=== PATIENT | male | born 1975 | race Caucasian/White ===

== ENCOUNTER 2020-07-09 11:05 | Emergency (ER) | payer MEDICAID ==
[~2020-07-09] VITALS: Ht 167.6 cm; Wt 99.8 kg
[2020-07-09 11:15] VITALS: BP_SYST 160
[2020-07-09 11:49] VITALS: BP_SYST 160
== END 2020-07-09 11:49 | disposition home or self-care (01) ==
LOC: SED 11:05
DX: A49.02 Methicillin resistant Staphylococcus aureus infection, unspecified site (principal)
CPT/HCPCS: 99283

== ENCOUNTER 2020-10-08 00:18 | Emergency (ER) | payer MEDICAID ==
[~2020-10-08] VITALS: Ht 167.6 cm; Wt 104.3 kg
[2020-10-08 00:30] VITALS: BP_SYST 159
--- NOTE | 2020-10-08 00:34 | NUR ---
TRIAGED TO BED 7
--- NOTE | 2020-10-08 00:35 | NUR ---
PT. BROUGHT BACK TO ED BED 7 AAOx3 CC 1CM BED BUG IN HEALING STAGES CRUSTED OVER TO THE MIDLINE ABDOMEN ABOVE THE UMBILICUS 5/10 PAIN x1 WEEK HISTORY OF SCHIZO AND BIPOLAR NO KNOWN ALLERGIES PT. PLACED IN ER BED IN LOWEST POSITION WITH BOTH SIDE RIALS UP
--- NOTE | 2020-10-08 00:39 | NUR ---
ER at bedside examining patient.
[2020-10-08] MEDS ORDERED: IBUPROFEN 600 MG TABLET PO ONE (00:45)
[2020-10-08] MEDS ORDERED: cephALEXin 500 MG CAPSULE PO ONE (00:45)
[2020-10-08] MEDS ORDERED: IBUPROFEN 600 MG TABLET ONE (01:09)
[2020-10-08 01:17] VITALS: BP_SYST 159
--- NOTE | 2020-10-08 01:20 | NUR ---
Patient given written and verbal discharge instructions and verbalizes understanding. DR. AZEEM BULNT MD discussed with patient the results and treatment provided. Patient in stable condition. ID arm band removed. Rx of KEFLEX given. Patient educated on pain management and to follow up with PMD. Pain Scale 2/10. Opportunity for questions provided and answered. Medication side effect fact sheet provided.
== END 2020-10-08 01:20 | disposition home or self-care (01) ==
LOC: SED 00:18
DX: L02.211 Cutaneous abscess of abdominal wall (principal); I10 Essential (primary) hypertension
CPT/HCPCS: 99283

== ENCOUNTER 2020-11-15 14:08 | Emergency (ER) | payer MEDICAID ==
[~2020-11-15] VITALS: Ht 170.2 cm; Wt 79.4 kg
[2020-11-15 14:28] VITALS: BP_SYST 138
[2020-11-15 15:10] VITALS: BP_SYST 138
== END 2020-11-15 15:10 | disposition home or self-care (01) ==
LOC: SED 14:08
DX: A49.02 Methicillin resistant Staphylococcus aureus infection, unspecified site (principal)
CPT/HCPCS: 99283

== ENCOUNTER 2020-12-04 17:54 | Emergency (ER) | payer MEDICAID, SELFPAY ==
[~2020-12-04] VITALS: Ht 167.6 cm; Wt 117.9 kg
[2020-12-04 17:54] VITALS: BP_SYST 155
[2020-12-04] MEDS ORDERED: ACETAMINOPHEN 500 MG TABLET PO ONE (18:30)
== END 2020-12-04 18:50 | disposition home or self-care (01) ==
LOC: SED 17:54
DX: B34.9 Viral infection, unspecified (principal); Z20.822 Contact with and (suspected) exposure to COVID-19
CPT/HCPCS: 99283; C9803; U0003

== ENCOUNTER 2020-12-07 00:55 | Emergency (ER) | payer MEDICAID, SELFPAY ==
[~2020-12-07] VITALS: Ht 167.6 cm; Wt 99.8 kg
--- NOTE | 2020-12-07 01:10 | NUR ---
Patient to ER bed 7 to gown for evaluation. Side rails up.
[2020-12-07 01:15] VITALS: BP_SYST 159
--- NOTE | 2020-12-07 01:15 | NUR ---
PT AAO AND AMBULATORY REPORTING SUDDEN ONSET OF CHEST PAIN, DIAPHORESIS, AND LIGHT HEADEDNESS. PT CURRENTLY REPORTS 8/10 PAIN SCALE.
[2020-12-07] MEDS ORDERED: NACL 0.9% 1,000 ML IV ONE (01:30)
--- NOTE | 2020-12-07 01:45 | NUR ---
PORTABLE CXR DONE AT BEDSIDE.
[2020-12-07 02:24] LABS: BASOPHILS % (AUTO) 0.7 % (0.0-2.0); EOSINOPHILS % (AUTO) 0.1 % (0.0-4.0); HEMATOCRIT 44.9 % (36-54); HEMOGLOBIN 15.2 g/dL (14.0-18.0); LYMPHOCYTES # (AUTO) 1.4 K/uL (1.0-5.5); LYMPHOCYTES % (AUTO) 22.7 % (20.5-51.5); MEAN CORPUSCULAR HEMOGLOBIN 30 pg (27-31); MEAN CORPUSCULAR HGB CONC 34 % (32-36); MEAN CORPUSCULAR VOLUME 88 fL (79.0-98.0); MONOCYTES # (AUTO) 0.7 K/uL (0.0-1.0); MONOCYTES % (AUTO) 11.5 % (1.7-9.3); NEUTROPHILS # (AUTO) 3.9 K/uL (1.8-7.7); PLATELET COUNT (AUTO) 186 K/uL (130-430); RED BLOOD CELL COUNT(AUTO) 5.08 MIL/uL (4.2-6.2); RED CELL DISTRIBUTION WIDTH 13.5 % (9.0-15.0)
[2020-12-07 02:31] LABS: ANION GAP 10 (5-15); CALCIUM 8.7 mg/dL (8.4-11.0); CHLORIDE 95 mmol/L (98-107); CREATININE 1.18 mg/dL (0.55-1.30); GFR AFRICAN AMERICAN 86 mL/min (>90); GLUCOSE 111 mg/dL (70-99); POTASSIUM 4.2 mmol/L (3.5-5.1); SODIUM SERUM 133 mmol/L (136-145); UREA NITROGEN, BLOOD 11 mg/dL (8-21)
--- NOTE | 2020-12-07 02:32 | NUR ---
Patient resting quietly. No acute distress noted.
[2020-12-07 02:42] LABS: ALANINE AMINOTRANSFERASE 48 U/L (12-78); ALBUMIN 3.4 g/dL (3.4-4.8); ASPARTATE AMINOTRANSFERASE 39 U/L (10-37); TOTAL BILIRUBIN 0.3 mg/dL (0.0-1.0)
[2020-12-07] MEDS ORDERED: KETOROLAC TROMETHAMINE 30 MG VIAL IVP ONE (03:15)
[2020-12-07] MEDS ORDERED: KETOROLAC TROMETHAMINE 30 MG VIAL ONE (03:34)
--- NOTE | 2020-12-07 03:35 | NUR ---
pt medicated per md order. pt tolerated well.
--- NOTE | 2020-12-07 03:51 | NUR ---
attempted to call pts Mom Shannon, phone went to voicemail. unable to leave message.
[2020-12-07 03:59] VITALS: BP_SYST 133
--- NOTE | 2020-12-07 03:59 | NUR ---
Patient given written and verbal discharge instructions and verbalizes understanding. ER MD discussed with patient the results and treatment provided. Patient in stable condition. ID arm band removed. IV catheter removed intact and dressing applied, no active bleeding. Rx of ibuprofen given. Patient educated on pain management and to follow up with PMD. Pain Scale 2/10. Opportunity for questions provided and answered. Medication side effect fact sheet provided.
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
== END 2020-12-07 03:59 | disposition home or self-care (01) ==
LOC: SED 00:55
DX: R07.89 Other chest pain (principal)
CPT/HCPCS: 36415; 71045; 80053; 84484; 85025; 85379; 93005; 96361; 96374; 99291; J1885; J7030

== ENCOUNTER 2020-12-07 14:42 | Emergency (ER) | payer MEDICAID, SELFPAY ==
[~2020-12-07] VITALS: Ht 167.6 cm; Wt 99.8 kg
[2020-12-07 15:00] VITALS: BP_SYST 133
--- NOTE | 2020-12-07 15:00 | NUR ---
PT TO TENT FOR EVALUATION
--- NOTE | 2020-12-07 15:20 | NUR ---
Patient left without being seen.
== END 2020-12-07 15:20 | disposition left against medical advice (07) ==
LOC: SED 14:42
DX: R06.02 Shortness of breath (principal); Z53.21 Procedure and treatment not carried out due to patient leaving prior to being seen by health care provider

== ENCOUNTER 2021-04-26 19:31 | Emergency (ER) | payer MEDICAID, SELFPAY ==
[~2021-04-26] VITALS: Ht 167.6 cm; Wt 99.8 kg
[2021-04-26 19:48] VITALS: BP_SYST 148
[2021-04-26] MEDS ORDERED: CEPH500C2 PO (20:32)
[2021-04-26] MEDS ORDERED: IBUP-1969 PO (20:32)
[2021-04-26] MEDS ORDERED: IBUPROFEN 600 MG TABLET ONE (20:40)
[2021-04-26] MEDS ORDERED: IBUPROFEN 600 MG TABLET PO ONE (20:45)
[2021-04-26 20:54] VITALS: BP_SYST 139
== END 2021-04-26 20:53 | disposition home or self-care (01) ==
LOC: SED 19:31
DX: S91.311A Laceration without foreign body, right foot, initial encounter (principal); F41.9 Anxiety disorder, unspecified; Z79.899 Other long term (current) drug therapy; L08.9 Local infection of the skin and subcutaneous tissue, unspecified; W25.XXXA Contact with sharp glass, initial encounter; Y93.89 Activity, other specified; Y92.89 Other specified places as the place of occurrence of the external cause; Y99.8 Other external cause status
CPT/HCPCS: 99283

== ENCOUNTER 2021-06-14 05:51 | Emergency (ER) | payer MEDICAID ==
[~2021-06-14] VITALS: Ht 167.6 cm; Wt 104.3 kg
[~2021-06-14 05:51] MED LIST: CEPH500C2 PO; IBUP-1969 PO
[2021-06-14 06:26] VITALS: BP_SYST 151
[2021-06-14] MEDS ORDERED: SULF1TAB47 PO (06:41)
[2021-06-14] MEDS ORDERED: BACI15OI13 TP (06:41)
[2021-06-14 06:58] VITALS: BP_SYST 151
== END 2021-06-14 06:58 | disposition home or self-care (01) ==
LOC: SED 05:51
DX: S00.86XA Insect bite (nonvenomous) of other part of head, initial encounter (principal); S60.562A Insect bite (nonvenomous) of left hand, initial encounter; L08.9 Local infection of the skin and subcutaneous tissue, unspecified; W57.XXXA Bitten or stung by nonvenomous insect and other nonvenomous arthropods, initial encounter; Y93.89 Activity, other specified; Y92.89 Other specified places as the place of occurrence of the external cause; Y99.8 Other external cause status
CPT/HCPCS: 99283

== ENCOUNTER 2021-06-26 08:28 | Emergency (ER) | payer MEDICAID ==
[~2021-06-26] VITALS: Ht 167.6 cm; Wt 104.3 kg
[~2021-06-26 08:28] MED LIST changes: +BACI15OI13 TP; +SULF1TAB47 PO
[2021-06-26 09:08] VITALS: BP_SYST 169
[2021-06-26] MEDS ORDERED: SULF1TAB48 PO (11:34)
[2021-06-26 12:01] VITALS: BP_SYST 169
== END 2021-06-26 12:01 | disposition home or self-care (01) ==
LOC: SED 08:28
DX: L02.811 Cutaneous abscess of head [any part, except face] (principal); F15.90 Other stimulant use, unspecified, uncomplicated; F41.9 Anxiety disorder, unspecified; Z79.899 Other long term (current) drug therapy
CPT/HCPCS: 87070-TC; 87075-TC; 87186-TC; 99283

== ENCOUNTER 2021-07-28 01:30 | Emergency (ER) | payer MEDICAID ==
[~2021-07-28] VITALS: Ht 167.6 cm; Wt 99.8 kg
[~2021-07-28 01:30] MED LIST changes: +SULF1TAB48 PO
[2021-07-28 01:35] VITALS: BP_SYST 174
--- NOTE | 2021-07-28 03:10 | NUR ---
Patient to ER bed 4 to gown for evaluation. Side rails up.
--- NOTE | 2021-07-28 03:15 | NUR ---
Dr. Rodríguez bedside for pt eval
--- NOTE | 2021-07-28 03:20 | NUR ---
PT BIB FAMILY TO ED S/P STEP INTO NAIL X7HRS.C/O RT FOOT PAIN. VSS NO S/S OF ACUTE DISTRESS RESTING ON GURNEY RAILS UP
[2021-07-28] MEDS ORDERED: CIPR500T5 PO (03:54)
[2021-07-28] MEDS ORDERED: DIPH-TET-PERTUS Vaccine 0.5 ML VIAL (ADACEL) I.M. ONE (04:00)
[2021-07-28] MEDS ORDERED: CIPROFLOXACIN HCL 500 MG TABLET PO ONE (04:00)
[2021-07-28 04:10] VITALS: BP_SYST 174
--- NOTE | 2021-07-28 04:10 | NUR ---
Patient given written and verbal discharge instructions and verbalizes understanding. ER MD discussed with patient the results and treatment provided. Patient in stable condition. ID arm band removed. Rx of Cipro given. Patient educated on pain management and to follow up with PMD. Pain Scale 0/10 Opportunity for questions provided and answered. Medication side effect fact sheet provided.
== END 2021-07-28 04:10 | disposition home or self-care (01) ==
LOC: SED 01:30
DX: S91.331A Puncture wound without foreign body, right foot, initial encounter (principal); I10 Essential (primary) hypertension; W45.8XXA Other foreign body or object entering through skin, initial encounter; Y93.89 Activity, other specified; Y92.89 Other specified places as the place of occurrence of the external cause; Y99.8 Other external cause status
CPT/HCPCS: 90715; 99283

== ENCOUNTER 2021-10-05 06:12 | Emergency (ER) | payer MEDICAID ==
[~2021-10-05] VITALS: Ht 167.6 cm; Wt 99.8 kg
[~2021-10-05 06:12] MED LIST changes: +CEPH-548 PO; -CEPH500C2 PO; +CIPR500T5 PO
[2021-10-05 06:25] VITALS: BP_SYST 163
--- NOTE | 2021-10-05 06:25 | NUR ---
Patient to ER bed 5 to gown for evaluation. Side rails up. Report given to RUTHIE REED.
--- NOTE | 2021-10-05 06:32 | NUR ---
ER at bedside examining patient.
--- NOTE | 2021-10-05 06:33 | NUR ---
PT ARRIVED TO ER WITH COMPLAINTS OF A WOUND TO RIGHT SIDE OF HIS MOUTH. STATES IT HAS BEEN THERE FOR ABOUT 3-4 DAYS. PT HAS 4/10 PAIN. A&OX4.
--- NOTE | 2021-10-05 07:00 | NUR ---
Report received from Wilmar HENDRICKS. Asumed care of patient. Patient resting in bed; in no acute distress. Awaiting Dr Escalera for evaluation. Will continue to monitor.
--- NOTE | 2021-10-05 07:05 | NUR ---
Dr Escalera to bedside for evaluation
[2021-10-05 07:38] LABS: BASOPHILS # (AUTO) 0.1 K/uL (0.0-0.2); BASOPHILS % (AUTO) 1.2 % (0.0-2.0); EOSINOPHILS # (AUTO) 0.3 K/uL (0.0-0.4); EOSINOPHILS % (AUTO) 2.7 % (0.0-4.0); HEMATOCRIT 44.4 % (36-54); LYMPHOCYTES # (AUTO) 1.8 K/uL (1.0-5.5); LYMPHOCYTES % (AUTO) 18.9 % (20.5-51.5); MEAN CORPUSCULAR HEMOGLOBIN 30 pg (27-31); MEAN CORPUSCULAR HGB CONC 34 % (32-36); MEAN CORPUSCULAR VOLUME 88 fL (79.0-98.0); MONOCYTES # (AUTO) 0.8 K/uL (0.0-1.0); MONOCYTES % (AUTO) 8.6 % (1.7-9.3); NEUTROPHILS # (AUTO) 6.5 K/uL (1.8-7.7); NEUTROPHILS % (AUTO) 68.6 % (40.0-70.0); PLATELET COUNT (AUTO) 290 K/uL (130-430); RED BLOOD CELL COUNT(AUTO) 5.06 MIL/uL (4.2-6.2); RED CELL DISTRIBUTION WIDTH 13.2 % (9.0-15.0); WHITE BLOOD COUNT (AUTO) 9.5 K/uL (4.8-10.8)
[2021-10-05 07:54] LABS: CALCIUM 8.8 mg/dL (8.4-11.0); CREATININE 1.05 mg/dL (0.55-1.30)
[2021-10-05 07:58] LABS: ALBUMIN 3.5 g/dL (3.4-4.8); C-REACTIVE PROTEIN QUANT 0.4 mg/dL (0-0.5); TOTAL BILIRUBIN 0.2 mg/dL (0.0-1.0)
[2021-10-05 08:02] LABS: PROTHROMBIN TIME 10.3 SECS (9.5-12.5)
--- NOTE | 2021-10-05 08:20 | NUR ---
Patient reported having headache. Dr Escalera informed per RN. Patient further noted pacing in room. Will await any further orders and follow up evaluation.
[2021-10-05] MEDS ORDERED: CLIN300C12 PO (08:25)
[2021-10-05] MEDS ORDERED: NEOM28.36 TP (08:25)
--- NOTE | 2021-10-05 09:00 | NUR ---
PT ELOPED OUT OF ER WITHOUT DISCHARGE PAPERWORK.
[2021-10-05 09:15] VITALS: BP_SYST 163
== END 2021-10-05 09:00 | disposition left against medical advice (07) ==
LOC: SED 06:12
DX: L03.211 Cellulitis of face (principal); J44.9 Chronic obstructive pulmonary disease, unspecified; F41.9 Anxiety disorder, unspecified; Z79.899 Other long term (current) drug therapy
CPT/HCPCS: 36415; 80053; 83605; 85025; 85610-TC; 85730-TC; 86140; 99283

== ENCOUNTER 2021-11-01 09:34 | Emergency (ER) | payer MEDICAID ==
[~2021-11-01] VITALS: Ht 167.6 cm; Wt 127.0 kg
[~2021-11-01 09:34] MED LIST changes: +CLIN-142 PO; +NEOM28.36 TP
[2021-11-01 09:35] VITALS: BP_SYST 151
--- NOTE | 2021-11-01 09:35 | NUR ---
BROUGHT BACK TO BED #3 AND TRIAGED. REPORT GIVEN TO MANJU
--- NOTE | 2021-11-01 09:38 | NUR ---
ER at bedside examining patient.
[2021-11-01] MEDS ORDERED: CLOT30CR25 TP (10:38)
[2021-11-01] MEDS ORDERED: CLIN-142 PO (10:38)
--- NOTE | 2021-11-01 10:57 | NUR ---
Patient given written and verbal discharge instructions and verbalizes understanding. MERLENE ribera MD discussed with patient the results and treatment provided. Patient in stable condition. ID arm band removed. Rx of clindomycin,clotrimazole given. Patient educated on pain management and to follow up with PMD. Pain Scale 0. Opportunity for questions provided and answered. Medication side effect fact sheet provided.
== END 2021-11-01 10:57 | disposition home or self-care (01) ==
LOC: SED 09:34
DX: L03.211 Cellulitis of face (principal); F41.9 Anxiety disorder, unspecified; Z79.899 Other long term (current) drug therapy
CPT/HCPCS: 99283

== ENCOUNTER 2022-01-13 01:21 | Emergency (ER) | payer MEDICAID ==
[~2022-01-13] VITALS: Ht 167.6 cm; Wt 104.3 kg
[2022-01-13 01:21] VITALS: BP_SYST 169
[~2022-01-13 01:21] MED LIST changes: +CLOT30CR25 TP
--- NOTE | 2022-01-13 01:21 | NUR ---
Patient to ER bed 05 to gown for evaluation. Side rails up. Report given to RUTHIE Rasheed
--- NOTE | 2022-01-13 01:48 | NUR ---
pt c/o right thumb has splinter and bump on right posterior of head, healed over scabes on both sites.
[2022-01-13] MEDS ORDERED: BACITRACIN ZINC 15 GM TOPICAL OINTMENT TP ONE (02:00)
[2022-01-13] MEDS ORDERED: SULF1TAB48 PO (03:22)
[2022-01-13] MEDS ORDERED: BACI15OI13 TP (03:22)
[2022-01-13] MEDS ORDERED: ACETAMINOPHEN 325 MG TABLET ONE (04:21)
[2022-01-13] MEDS ORDERED: BACITRACIN 1 GM OINT TP ONE (04:21)
[2022-01-13 04:27] VITALS: BP_SYST 161
[2022-01-13] MEDS ORDERED: ACETAMINOPHEN 325 MG TABLET PO ONE (04:30)
== END 2022-01-13 04:27 | disposition home or self-care (01) ==
LOC: SED 01:21
DX: S61.210S Laceration without foreign body of right index finger without damage to nail, sequela (principal); L72.3 Sebaceous cyst; H92.01 Otalgia, right ear; F41.9 Anxiety disorder, unspecified; Z86.16 Personal history of COVID-19; Z79.899 Other long term (current) drug therapy; X58.XXXS Exposure to other specified factors, sequela
CPT/HCPCS: 73140-TC; 99284

== ENCOUNTER 2022-02-22 01:00 | Emergency (ER) | payer MEDICAID ==
[~2022-02-22] VITALS: Ht 167.6 cm; Wt 99.8 kg
--- NOTE | 2022-02-22 01:09 | NUR ---
CALLED FOR JEREMY BUT NO ANSWER= 1
[2022-02-22 01:25] VITALS: BP_SYST 178
--- NOTE | 2022-02-22 02:16 | NUR ---
PT CALLED FOR PLACEMENT IN MAIN ED, NO ANSWER
--- NOTE | 2022-02-22 02:57 | NUR ---
NO ANSWER, LEFT WITHOUT BEING SEEN
--- NOTE | 2022-02-22 05:02 | NUR ---
PT LEFT WITHOUT BEING SEEN
== END 2022-02-22 05:02 | disposition left against medical advice (07) ==
LOC: SED 01:00
DX: M79.644 Pain in right finger(s) (principal); Z53.21 Procedure and treatment not carried out due to patient leaving prior to being seen by health care provider

== ENCOUNTER 2022-06-21 22:39 | Emergency (ER) | payer MEDICAID ==
[~2022-06-21] VITALS: Ht 167.6 cm; Wt 113.4 kg
[2022-06-21 22:45] VITALS: BP_SYST 186
--- NOTE | 2022-06-21 22:48 | NUR ---
PATIENT STATES THAT HIS FOOT GETS SWOLLEN AND RED OFF AND ON FOR THE PAST TWO MONTHS, STATES THAT SINCE HE HAS STOPPED GETTING HIGH, IT GOT WORSE. NO COMPLAINT OR PAIN AT THIS TIME.
--- NOTE | 2022-06-21 23:10 | NUR ---
PATIENT TO BED 6 WAITING TO BE SEEN.
--- NOTE | 2022-06-21 23:35 | NUR ---
MERLENE Dash at bedside examining patient.
[2022-06-22] VITALS: BP_SYST 170
--- NOTE | 2022-06-22 | NUR ---
Pt left w/o waiting for written ACI.DR Skinner made aware.
== END 2022-06-22 | disposition home or self-care (01) ==
LOC: SED 22:39
DX: R60.9 Edema, unspecified (principal); F15.90 Other stimulant use, unspecified, uncomplicated; Z79.899 Other long term (current) drug therapy
CPT/HCPCS: 99281

== ENCOUNTER 2022-08-12 07:02 | Emergency (ER) | payer MEDICAID ==
[~2022-08-12] VITALS: Ht 167.6 cm; Wt 108.9 kg
[2022-08-12 07:02] VITALS: BP_SYST 180
--- NOTE | 2022-08-12 07:02 | NUR ---
BROUGHT IN BY WHEELCHAIR, PLACED IN BED #8 AND TRIAGED. REPORT GIVEN TO NURSE
--- NOTE | 2022-08-12 07:35 | NUR ---
DR FRIAS AT BEDSIDE FOR EVALUATION
[2022-08-12 08:12] VITALS: BP_SYST 160
--- NOTE | 2022-08-12 08:13 | NUR ---
Received patient in room 8. Patient had foot Xray done and spoke with nurse about foot issues, homeless living and current problem. MD in with patient at this time.
--- NOTE | 2022-08-12 08:34 | NUR ---
DR FRIAS AT BEDSIDE FOR RE-EVAL
[2022-08-12] MEDS ORDERED: IBUP-1969 PO (08:43)
[2022-08-12] MEDS ORDERED: HYDROcodone/ACETAMIN 7.5-325 MG TAB PO ONE (08:45)
--- NOTE | 2022-08-12 09:13 | NUR ---
Patient given written and verbal discharge instructions and verbalizes understanding. ER MD discussed with patient the results and treatment provided. Patient in stable condition. ID arm band removed. Quinn tablet and RX of Ibuprophen given. Patient educated on pain management and to follow up with PMD. Pain Scale 7/10. Opportunity for questions provided and answered. Medication side effect fact sheet provided.
== END 2022-08-12 09:13 | disposition home or self-care (01) ==
LOC: SED 07:02
DX: M76.62 Achilles tendinitis, left leg (principal); M25.572 Pain in left ankle and joints of left foot; Z79.899 Other long term (current) drug therapy
CPT/HCPCS: 99283

== ENCOUNTER 2022-09-23 07:10 | Emergency (ER) | payer MEDICAID ==
[~2022-09-23] VITALS: Ht 167.6 cm; Wt 108.9 kg
[2022-09-23 07:10] VITALS: BP_SYST 174
== END 2022-09-23 08:10 | disposition home or self-care (01) ==
LOC: SED 07:10
DX: R04.0 Epistaxis (principal); F15.20 Other stimulant dependence, uncomplicated; Z79.899 Other long term (current) drug therapy
CPT/HCPCS: 99281

== ENCOUNTER 2022-10-12 13:45 | Emergency (ER) | payer MEDICAID ==
[~2022-10-12] VITALS: Ht 167.6 cm; Wt 108.9 kg
[2022-10-12 14:00] VITALS: BP_SYST 135
--- NOTE | 2022-10-12 14:00 | NUR ---
Patient triaged and placed in waiting room. VSS and patient appears in no acute distress at this time. Accompanied by SELF, awaiting available bed, and MD notified of need for MSE.
--- NOTE | 2022-10-12 19:30 | NUR ---
CALLED PT TO ASSES. PT NOT FOUND IN TRIAGE.
== END 2022-10-12 19:30 | disposition left against medical advice (07) ==
LOC: SED 13:45
DX: S00.06XA Insect bite (nonvenomous) of scalp, initial encounter (principal); Z53.21 Procedure and treatment not carried out due to patient leaving prior to being seen by health care provider; W57.XXXA Bitten or stung by nonvenomous insect and other nonvenomous arthropods, initial encounter; Y93.89 Activity, other specified; Y92.89 Other specified places as the place of occurrence of the external cause; Y99.8 Other external cause status

== ENCOUNTER 2022-10-15 00:11 | Emergency (ER) | payer MEDICAID ==
[~2022-10-15] VITALS: Ht 167.6 cm; Wt 108.9 kg
[2022-10-15 00:30] VITALS: BP_SYST 185
--- NOTE | 2022-10-15 00:30 | NUR ---
Patient triaged and placed in waiting room. VSS and patient appears in no acute distress at this time. Awaiting available bed, and MD notified of need for MSE.
--- NOTE | 2022-10-15 01:00 | NUR ---
ER examining patient in the triage room.
[2022-10-15] MEDS ORDERED: CEPH250C PO (01:24)
[2022-10-15] MEDS ORDERED: IBUP-1969 PO (01:24)
[2022-10-15] MEDS ORDERED: HYDR28CR28 TP (01:24)
--- NOTE | 2022-10-15 01:35 | NUR ---
Patient given verbal discharge instructions by Dr Arnold and verbalizes understanding. ER MD discussed with patient the results and treatment provided. Patient in stable condition. ID arm band removed. Rx of Keflex,Cortizone,Ibuprofen given. Patient educated on pain management and to follow up with PMD. Pain Scale /10. Opportunity for questions provided and answered. Medication side effect fact sheet provided.
[2022-10-15 01:40] VITALS: BP_SYST 180
--- NOTE | 2022-10-15 01:40 | NUR ---
Pt left w/o waiting for writtern after care instruction.
== END 2022-10-15 01:40 | disposition home or self-care (01) ==
LOC: SED 00:11
DX: L03.115 Cellulitis of right lower limb (principal); M76.61 Achilles tendinitis, right leg; L20.9 Atopic dermatitis, unspecified; R20.2 Paresthesia of skin; F15.10 Other stimulant abuse, uncomplicated; F17.200 Nicotine dependence, unspecified, uncomplicated; Z79.899 Other long term (current) drug therapy
CPT/HCPCS: 99283

== ENCOUNTER 2022-12-14 02:17 | Emergency (ER) | payer MEDICAID ==
[~2022-12-14] VITALS: Ht 167.6 cm; Wt 104.3 kg
[~2022-12-14 02:17] MED LIST changes: +CEPH250C PO; +HYDR28CR28 TP
[2022-12-14 02:41] VITALS: BP_SYST 178
--- NOTE | 2022-12-14 03:03 | NUR ---
Patient to ER bed 08 to gown for evaluation. Side rails up.
--- NOTE | 2022-12-14 03:05 | NUR ---
WITH PATIENT AT BEDSIDE FOR MSE.
--- NOTE | 2022-12-14 03:10 | NUR ---
PT FROM HOME WITH C/O OF FEELING SOB. PT STATES THAT HE FEELS SOB WHEN HE IS TRYING TO FALL ASLEEP. PT STATES THAT HE USED METH YESTERDAY. PT TACHYCARDIC AT 111 AND BP 193/129, MADE AWARE.
[2022-12-14] MEDS ORDERED: cloNIDine HCL 0.1 MG TABLET PO ONE ×2 (03:15→04:15)
--- NOTE | 2022-12-14 03:15 | NUR ---
X-RAY BEING SHOT AT BEDSIDE.
--- NOTE | 2022-12-14 04:04 | NUR ---
BP 188/125. MADE AWARE, AWAITING NEW ORDERS.
--- NOTE | 2022-12-14 04:43 | NUR ---
ELÍAS VICENTE MD MADE AWARE.
== END 2022-12-14 04:43 | disposition left against medical advice (07) ==
LOC: SED 02:17
DX: F41.9 Anxiety disorder, unspecified (principal); I10 Essential (primary) hypertension; F15.10 Other stimulant abuse, uncomplicated; R06.02 Shortness of breath; Z79.899 Other long term (current) drug therapy
CPT/HCPCS: 71045; 93005; 99283

== ENCOUNTER 2022-12-22 04:46 | Emergency (ER) | payer MEDICAID ==
[~2022-12-22] VITALS: Ht 170.2 cm; Wt 113.4 kg
[2022-12-22 04:53] VITALS: BP_SYST 192
--- NOTE | 2022-12-22 04:56 | NUR ---
Patient to ER bed 07 to gown for evaluation. Side rails up. Report given to RUTHIE ROSENTHAL.
--- NOTE | 2022-12-22 04:59 | NUR ---
DR. BARRERA AT BEDSIDE WITH PATIENT FOR EVALUATION.
--- NOTE | 2022-12-22 05:06 | NUR ---
Portable x-ray done at bedside.
[2022-12-22] MEDS ORDERED: LORazepam 1 MG TABLET PO ONE (05:15)
[2022-12-22 05:21] LABS: BASOPHILS # (AUTO) 0.1 K/uL (0.0-0.2); BASOPHILS % (AUTO) 1.1 % (0.0-2.0); EOSINOPHILS # (AUTO) 0.5 K/uL (0.0-0.4); EOSINOPHILS % (AUTO) 6.3 % (0.0-4.0); HEMATOCRIT 41.6 % (36-54); HEMOGLOBIN 13.7 g/dL (14.0-18.0); LYMPHOCYTES # (AUTO) 2.1 K/uL (1.0-5.5); LYMPHOCYTES % (AUTO) 27.4 % (20.5-51.5); MEAN CORPUSCULAR HEMOGLOBIN 29 pg (27-31); MEAN CORPUSCULAR HGB CONC 33 % (32-36); MEAN CORPUSCULAR VOLUME 88 fL (79.0-98.0); MONOCYTES # (AUTO) 1.1 K/uL (0.0-1.0); MONOCYTES % (AUTO) 14.2 % (1.7-9.3); PLATELET COUNT (AUTO) 252 K/uL (130-430); RED BLOOD CELL COUNT(AUTO) 4.72 MIL/uL (4.2-6.2); RED CELL DISTRIBUTION WIDTH 13.6 % (9.0-15.0); WHITE BLOOD COUNT (AUTO) 7.8 K/uL (4.8-10.8)
[2022-12-22 05:44] LABS: ANION GAP 8 (5-15); CALCIUM 8.8 mg/dL (8.4-11.0); CHLORIDE 104 mmol/L (98-107); GLUCOSE 123 mg/dL (70-99); UREA NITROGEN, BLOOD 17 mg/dL (8-21)
[2022-12-22 05:50] LABS: ALANINE AMINOTRANSFERASE 60 U/L (12-78); ALBUMIN 3.5 g/dL (3.4-4.8); ASPARTATE AMINOTRANSFERASE 37 U/L (10-37); TOTAL BILIRUBIN 0.3 mg/dL (0.0-1.0)
[2022-12-22] MEDS ORDERED: cloNIDine HCL 0.1 MG TABLET PO ONE (06:00)
[2022-12-22 06:09] LABS: GFR AFRICAN AMERICAN 103 mL/min (>90)
[2022-12-22 06:38] LABS: BARBITURATE, URINE NEGATIVE (NEG <=200); URINE AMPHETAMINE POSITIVE (NEG <=500)
[2022-12-22 06:39] LABS: BENZODIAZEPINE, URINE NEGATIVE (NEG <=150); CANNABINOID, URINE NEGATIVE (NEG <=50); COCAINE, URINE NEGATIVE (NEG <=150); METHAMPHETAMINES SCREEN,URINE POSITIVE (NEG <=500); OPIATE, URINE NEGATIVE (NEG <=100); PHENCYCLIDINE SCREEN,URINE NEGATIVE (NEG <=25); UR TRICYCLIC ANTIDEPRESSANTS NEGATIVE (NEG <=300); URINE METHADONE NEGATIVE (NEG <=200); URINE OXYCODONE SCREEN NEGATIVE (NEG <=100); URINE PROPOXYPHENE SCREEN NEGATIVE (NEG <=300)
--- NOTE | 2022-12-22 07:15 | NUR ---
Report given and care transferred to [facility] for continuity of care.
--- NOTE | 2022-12-22 07:17 | NUR ---
RECEIVED PT FROM RUTHIE ROSENTHAL. ASSUMED CARE.
--- NOTE | 2022-12-22 07:47 | NUR ---
CALLED PT'S SIGNIFICANT OTHER PAT TO REQUEST RIDE HOME FOR PT, LEFT MESSAGE, AWAITING CALL BACK.
[2022-12-22 08:25] VITALS: BP_SYST 135
--- NOTE | 2022-12-22 08:39 | NUR ---
Patient given written and verbal discharge instructions and verbalizes understanding. ER MD discussed with patient the results and treatment provided. Patient in stable condition. ID arm band removed. Patient educated on pain management and to follow up with PMD. Pain Scale . Opportunity for questions provided and answered. Medication side effect fact sheet provided.
== END 2022-12-22 08:26 | disposition home or self-care (01) ==
LOC: SED 04:46
DX: F15.10 Other stimulant abuse, uncomplicated (principal); R06.02 Shortness of breath; Z79.899 Other long term (current) drug therapy
CPT/HCPCS: 36415; 71045; 80053; 80307; 83880; 84484; 85025; 93005; 99285

== ENCOUNTER 2023-06-17 06:36 | Emergency (ER) | payer MEDICAID ==
[~2023-06-17] VITALS: Ht 165.1 cm; Wt 120.2 kg
[~2023-06-17 06:36] MED LIST changes: +CLIN-22 PO; +IBUP-1971 PO
[2023-06-17 06:42] VITALS: PULSE 104; RESP 16; TEMP 97.8
[2023-06-17] MEDS ORDERED: HYDROcodone/ACETAMIN 10-325 MG TAB PO ONE (07:00)
[2023-06-17] MEDS ORDERED: KETOROLAC TROMETHAMINE 60 MG/2 ML VIAL IM ONE (07:00)
[2023-06-17 07:20] LABS: BASOPHILS % (AUTO) 0.6 % (0.0-2.0); EOSINOPHILS # (AUTO) 0.5 K/uL (0.0-0.4); EOSINOPHILS % (AUTO) 6.5 % (0.0-4.0); HEMATOCRIT 40.6 % (36-54); HEMOGLOBIN 13.3 g/dL (14.0-18.0); LYMPHOCYTES # (AUTO) 2.1 K/uL (1.0-5.5); LYMPHOCYTES % (AUTO) 27.3 % (20.5-51.5); MEAN CORPUSCULAR HEMOGLOBIN 29 pg (27-31); MEAN CORPUSCULAR HGB CONC 33 % (32-36); MEAN CORPUSCULAR VOLUME 88 fL (79.0-98.0); MONOCYTES % (AUTO) 12.9 % (1.7-9.3); NEUTROPHILS # (AUTO) 4.1 K/uL (1.8-7.7); NEUTROPHILS % (AUTO) 52.7 % (40.0-70.0); PLATELET COUNT (AUTO) 232 K/uL (130-430); RED BLOOD CELL COUNT(AUTO) 4.62 MIL/uL (4.2-6.2); RED CELL DISTRIBUTION WIDTH 14.6 % (9.0-15.0); WHITE BLOOD COUNT (AUTO) 7.8 K/uL (4.8-10.8)
[2023-06-17 07:33] LABS: CALCIUM 8.5 mg/dL (8.4-11.0); CREATININE 1.23 mg/dL (0.55-1.30); POTASSIUM 3.8 mmol/L (3.5-5.1)
[2023-06-17 07:42] LABS: ERYTHROCYTE SEDIMENTATION RATE 11 MM/HR (0-15)
[2023-06-17 07:47] LABS: ALBUMIN 3.5 g/dL (3.4-4.8); TOTAL BILIRUBIN 0.4 mg/dL (0.0-1.0); URIC ACID 8.9 mg/dL (2.4-7.0)
[2023-06-17] MEDS ORDERED: cloNIDine HCL 0.1 MG TABLET PO ONE (08:30)
[2023-06-17] MEDS ORDERED: IBUP-1971 PO (09:23)
[2023-06-17] MEDS ORDERED: HYDR-3927 PO (09:23)
[2023-06-17] MEDS ORDERED: NITROGLYCERIN 0.4 MG TAB.SUBL SL ONE (09:30)
[2023-06-17 10:30] VITALS: BP_SYST 156; PULSE 95; RESP 18; TEMP 97.4; O2SAT 98
[2023-06-18] MEDS ORDERED: HYDR50TA4 PO (13:58)
== END 2023-06-17 10:30 | disposition home or self-care (01) ==
LOC: SED 06:36
DX: M54.50 Low back pain, unspecified (principal); M25.511 Pain in right shoulder; M25.552 Pain in left hip; Z79.899 Other long term (current) drug therapy
CPT/HCPCS: 99285; 80053; 84550; 85025; 85651; 36415; 72170; 73030; 96372; 82397; J1885

== ENCOUNTER 2023-06-18 08:40 | Emergency (ER) | payer MEDICAID ==
[~2023-06-18] VITALS: Ht 167.6 cm; Wt 117.9 kg
[~2023-06-18 08:40] MED LIST changes: +HYDR-3927 PO
[2023-06-18 08:51] VITALS: BP_SYST 182; PULSE 107; RESP 20; TEMP 98.1; O2SAT 99
[2023-06-18] MEDS ORDERED: LORazepam 1 MG TABLET PO ONE (09:00)
[2023-06-18] MEDS ORDERED: cloNIDine HCL 0.1 MG TABLET PO ONE ×3 (09:00→13:00)
[2023-06-18] MEDS ORDERED: HYDR50TA4 PO (13:58)
[2023-06-18 15:31] VITALS: BP_SYST 174; PULSE 95; RESP 18; TEMP 98.5; O2SAT 97
== END 2023-06-18 14:29 | disposition home or self-care (01) ==
LOC: SED 08:40
DX: F15.10 Other stimulant abuse, uncomplicated (principal); I10 Essential (primary) hypertension; R06.02 Shortness of breath; Z79.899 Other long term (current) drug therapy
CPT/HCPCS: 71045; 93005; 99284

== ENCOUNTER 2023-06-19 02:14 | Emergency (ER) | payer MEDICAID ==
[~2023-06-19] VITALS: Ht 165.1 cm; Wt 113.4 kg
[~2023-06-19 02:14] MED LIST changes: +HYDR50TA4 PO
[2023-06-19 02:22] VITALS: BP_SYST 143; PULSE 86; RESP 22; TEMP 97.8; O2SAT 98
== END 2023-06-19 03:00 | disposition left against medical advice (07) ==
LOC: SED 02:14
DX: R06.02 Shortness of breath (principal); Z53.21 Procedure and treatment not carried out due to patient leaving prior to being seen by health care provider
CPT/HCPCS: 99281

== ENCOUNTER 2023-08-16 03:24 | Inpatient (IN) | payer MEDICAID ==
[~2023-08-16] VITALS: Ht 167.6 cm; Wt 99.8 kg
[2023-08-16 03:27] VITALS: BP_SYST 165; PULSE 104; RESP 17; TEMP 97.9; O2SAT 95
[2023-08-16] MEDS ORDERED: HYDROcodone/ACETAMIN 7.5-325 MG TAB PO ONE (03:45)
[2023-08-16] MEDS ORDERED: METOPROLOL TARTRATE 25 MG TABLET PO ONE (04:30)
[2023-08-16] MEDS ORDERED: MORPHINE 4 MG INJ. 4 MG/ML VIAL IM ONE (05:30)
[2023-08-16] MEDS ORDERED: MORPHINE 4 MG INJ. 4 MG/ML VIAL IVP ONE (07:45)
[2023-08-16 10:18] LABS: BASOPHILS # (AUTO) 0.1 K/uL (0.0-0.2); BASOPHILS % (AUTO) 0.6 % (0.0-2.0); EOSINOPHILS # (AUTO) 0.4 K/uL (0.0-0.4); EOSINOPHILS % (AUTO) 3.2 % (0.0-4.0); HEMATOCRIT 43.5 % (36-54); HEMOGLOBIN 14.4 g/dL (14.0-18.0); LYMPHOCYTES # (AUTO) 1.8 K/uL (1.0-5.5); LYMPHOCYTES % (AUTO) 15.3 % (20.5-51.5); MEAN CORPUSCULAR HEMOGLOBIN 30 pg (27-31); MEAN CORPUSCULAR HGB CONC 33 % (32-36); MEAN CORPUSCULAR VOLUME 89 fL (79.0-98.0); MONOCYTES % (AUTO) 8.7 % (1.7-9.3); NEUTROPHILS # (AUTO) 8.5 K/uL (1.8-7.7); NEUTROPHILS % (AUTO) 72.2 % (40.0-70.0); PLATELET COUNT (AUTO) 239 K/uL (130-430); RED BLOOD CELL COUNT(AUTO) 4.89 MIL/uL (4.2-6.2); RED CELL DISTRIBUTION WIDTH 13.9 % (9.0-15.0); WHITE BLOOD COUNT (AUTO) 11.8 K/uL (4.8-10.8)
[2023-08-16 10:25] LABS: ANION GAP 8 (5-15); CALCIUM 8.4 mg/dL (8.4-11.0); CARBON DIOXIDE 26 mmol/L (23-29); CHLORIDE 97 mmol/L (98-107); CREATININE 0.98 mg/dL (0.55-1.30); GFR AFRICAN AMERICAN 106 mL/min (>90); GLUCOSE 121 mg/dL (74-106); SODIUM SERUM 131 mmol/L (136-145); UREA NITROGEN, BLOOD 15 mg/dL (8-21)
[2023-08-16 10:35] LABS: ALCOHOL, BLOOD < 3 mg/dL (<10); GFR NON AFRICAN-AMERICAN 88 mL/min (>90)
[2023-08-16] MEDS ORDERED: METO50TA16 PO (11:46)
[2023-08-16] MEDS ORDERED: LOSA100T24 PO (11:46)
[2023-08-16] MEDS ORDERED: LABETALOL 100 MG/ 20ML VIAL IVP ONE (13:15)
[2023-08-16 14:00] VITALS: BP_SYST 143; PULSE 78; RESP 16; TEMP 97.3; O2SAT 98
[2023-08-16] MEDS ORDERED: LORazepam 2 MG/ML VIAL IM PRN (14:30)
[2023-08-16 14:40] VITALS: PULSE 88; O2SAT 98
[2023-08-16] MEDS ORDERED: IPRATROPIUM/ALBUTEROL SULFATE 3 ML AMPUL.NEB (DUONEB) INH PRN (14:45)
[2023-08-16 15:45] VITALS: BP_SYST 143; PULSE 78; RESP 16; TEMP 97.3; O2SAT 98
[2023-08-16] MEDS: THIAMINE HCL IV SCH (15:56)
[2023-08-16] MEDS: NACL 0.45% IV SCH (15:56)
[2023-08-16] MEDS: FOLIC ACID IV SCH (15:56)
[2023-08-16] MEDS ORDERED: ONDANSETRON HCL 4 MG/2 ML VIAL IVP PRN (16:00)
[2023-08-16 16:30] VITALS: BP_SYST 139; PULSE 80; RESP 18; TEMP 97.6; O2SAT 97
[2023-08-16] MEDS: HYDROcodone/ACETAMIN 5-325 MG TAB (NORCO/ VICODIN) PO PRN ×2 (18:17→22:42)
[2023-08-16 18:55] LABS: BILIRUBIN,URINE NEGATIVE (NEGATIVE); BLOOD, URINE NEGATIVE (NEGATIVE); CLARITY/URINE CLEAR (CLEAR); COLOR,URINE YELLOW (YELLOW); GLUCOSE,URINE NEGATIVE (NEGATIVE); KETONES,URINE NEGATIVE (NEGATIVE); LEUKOCYTE ESTERASE ,URINE NEGATIVE (NEGATIVE); NITRITE, URINE NEGATIVE (NEGATIVE); PROTEIN URINE NEGATIVE (NEGATIVE); UROBILINOGEN,URINE 0.2 (0.2-1.0)
[2023-08-16 19:11] LABS: BARBITURATE, URINE NEGATIVE (NEG <=200); BENZODIAZEPINE, URINE NEGATIVE (NEG <=150); CANNABINOID, URINE NEGATIVE (NEG <=50); COCAINE, URINE NEGATIVE (NEG <=150); METHAMPHETAMINES SCREEN,URINE POSITIVE (NEG <=500); OPIATE, URINE POSITIVE (NEG <=100); PHENCYCLIDINE SCREEN,URINE NEGATIVE (NEG <=25); UR TRICYCLIC ANTIDEPRESSANTS NEGATIVE (NEG <=300); URINE AMPHETAMINE POSITIVE (NEG <=500); URINE METHADONE NEGATIVE (NEG <=200); URINE OXYCODONE SCREEN NEGATIVE (NEG <=100); URINE PROPOXYPHENE SCREEN NEGATIVE (NEG <=300)
[2023-08-16 19:55] VITALS: BP_SYST 156; PULSE 99; RESP 20; TEMP 98.4; O2SAT 100
[2023-08-17] VITALS (8 sets, daily range): BP systolic 114–190; PULSE 11–112; RESP 17–22; TEMP 96.6–98.8; O2SAT 96–100
[2023-08-17] MEDS: cloNIDine HCL 0.1 MG TABLET PO PRN ×2 (00:47→10:40)
[2023-08-17] MEDS: MORPHINE 4 MG INJ. 4 MG/ML VIAL IVP PRN ×3 (00:48→14:17)
[2023-08-17] MEDS: LORazepam 2 MG/ML VIAL IVP PRN ×2 (02:24→06:31)
[2023-08-17 05:57] LABS: BASOPHILS % (AUTO) 0.4 % (0.0-2.0); EOSINOPHILS # (AUTO) 0.3 K/uL (0.0-0.4); EOSINOPHILS % (AUTO) 2.8 % (0.0-4.0); HEMATOCRIT 44.1 % (36-54); HEMOGLOBIN 14.1 g/dL (14.0-18.0); LYMPHOCYTES # (AUTO) 1.7 K/uL (1.0-5.5); LYMPHOCYTES % (AUTO) 16.7 % (20.5-51.5); MEAN CORPUSCULAR HEMOGLOBIN 29 pg (27-31); MEAN CORPUSCULAR HGB CONC 32 % (32-36); MEAN CORPUSCULAR VOLUME 90 fL (79.0-98.0); MONOCYTES # (AUTO) 1.1 K/uL (0.0-1.0); MONOCYTES % (AUTO) 11.1 % (1.7-9.3); PLATELET COUNT (AUTO) 230 K/uL (130-430); RED BLOOD CELL COUNT(AUTO) 4.91 MIL/uL (4.2-6.2); RED CELL DISTRIBUTION WIDTH 13.7 % (9.0-15.0); WHITE BLOOD COUNT (AUTO) 10.1 K/uL (4.8-10.8)
[2023-08-17 06:04] LABS: INR 1.1 (0.80-1.20)
[2023-08-17 06:06] LABS: ALBUMIN 3.2 g/dL (3.4-4.8); CALCIUM 8.5 mg/dL (8.4-11.0); CREATININE 0.78 mg/dL (0.55-1.30); POTASSIUM 4.1 mmol/L (3.5-5.1); TOTAL BILIRUBIN 1.2 mg/dL (0.0-1.0)
[2023-08-17] MEDS: THIAMINE HCL IV SCH (11:25)
[2023-08-17] MEDS: FOLIC ACID IV SCH (11:25)
[2023-08-17] MEDS: NACL 0.45% IV SCH (11:25)
[2023-08-17] MEDS ORDERED: THIAMINE HCL 100 MG TABLET PO ONE (15:00)
[2023-08-17] MEDS: QUEtiapine FUMARATE 100 MG TABLET PO SCH (17:17)
[2023-08-17] MEDS: METOPROLOL TARTRATE 50 MG TABLET PO SCH (21:00)
[2023-08-18] MEDS: THIAMINE HCL IV SCH (01:01)
[2023-08-18] MEDS: FOLIC ACID IV SCH (01:01)
[2023-08-18] MEDS: NACL 0.45% IV SCH (01:01)
[2023-08-18 01:11] VITALS: BP_SYST 149; PULSE 101; RESP 19; TEMP 98.8; O2SAT 100
[2023-08-18 06:41] LABS: ANION GAP 9 (5-15); BASOPHILS % (AUTO) 0.4 % (0.0-2.0); CALCIUM 8.8 mg/dL (8.4-11.0); CARBON DIOXIDE 28 mmol/L (23-29); CHLORIDE 98 mmol/L (98-107); CREATININE 0.93 mg/dL (0.55-1.30); EOSINOPHILS # (AUTO) 0.3 K/uL (0.0-0.4); EOSINOPHILS % (AUTO) 2.7 % (0.0-4.0); GFR AFRICAN AMERICAN 112 mL/min (>90); GLUCOSE 113 mg/dL (74-106); HEMOGLOBIN 14.3 g/dL (14.0-18.0); LYMPHOCYTES # (AUTO) 1.6 K/uL (1.0-5.5); LYMPHOCYTES % (AUTO) 15.6 % (20.5-51.5); MEAN CORPUSCULAR HEMOGLOBIN 29 pg (27-31); MEAN CORPUSCULAR HGB CONC 32 % (32-36); MEAN CORPUSCULAR VOLUME 90 fL (79.0-98.0); MONOCYTES # (AUTO) 1.4 K/uL (0.0-1.0); NEUTROPHILS # (AUTO) 6.7 K/uL (1.8-7.7); NEUTROPHILS % (AUTO) 67.3 % (40.0-70.0); PLATELET COUNT (AUTO) 240 K/uL (130-430); POTASSIUM 4.1 mmol/L (3.5-5.1); RED BLOOD CELL COUNT(AUTO) 4.91 MIL/uL (4.2-6.2); RED CELL DISTRIBUTION WIDTH 13.7 % (9.0-15.0); SODIUM SERUM 135 mmol/L (136-145); UREA NITROGEN, BLOOD 12 mg/dL (8-21)
[2023-08-18 06:45] LABS: GFR NON AFRICAN-AMERICAN 93 mL/min (>90)
[2023-08-18 06:46] LABS: ALANINE AMINOTRANSFERASE 43 U/L (12-78); ASPARTATE AMINOTRANSFERASE 26 U/L (10-37); CHOLESTEROL 193 mg/dL (<200); HDL CHOLESTEROL 65 mg/dL (>45); TOTAL BILIRUBIN 1.1 mg/dL (0.0-1.0); TOTAL PROTEIN, SERUM 6.9 g/dL (6.4-8.3); TRIGLYCERIDES 65 mg/dL (30-150)
[2023-08-18 08:00] VITALS: BP_SYST 163; PULSE 110; RESP 18; TEMP 99; O2SAT 96; O2SAT 98
[2023-08-18] MEDS: NEPHROVITE, (FOLIC ACID/VITAMIN B COMP W-C 1 TAB) PO SCH (09:29)
[2023-08-18] MEDS: METOPROLOL TARTRATE 50 MG TABLET PO SCH ×2 (09:30→20:46)
[2023-08-18] MEDS: THIAMINE HCL 100 MG TABLET PO SCH (09:30)
[2023-08-18] MEDS: LOSARTAN POTASSIUM 50 MG TABLET (COZAAR) PO SCH (09:31)
[2023-08-18] MEDS ORDERED: HYDROCHLOROTHIAZIDE 25 MG TABLET (HCTZ) PO ONE (10:00)
[2023-08-18] MEDS ORDERED: SPIRONOLACTONE 50 MG TABLET (ALDACTONE) PO ONE (10:15)
[2023-08-18 11:49] VITALS: BP_SYST 155; PULSE 102; RESP 19; TEMP 97.6; O2SAT 100
[2023-08-18 16:13] VITALS: BP_SYST 149; PULSE 95; RESP 18; TEMP 97.6; O2SAT 97
[2023-08-18] MEDS: QUEtiapine FUMARATE 100 MG TABLET PO SCH (17:24)
[2023-08-18 20:05] VITALS: BP_SYST 155; PULSE 116; RESP 20; TEMP 99.9; O2SAT 98
[2023-08-18] MEDS: CARVEDILOL 6.25 MG TABLET (COREG) PO SCH (20:47)
[2023-08-19] VITALS (7 sets, daily range): BP systolic 100–146; PULSE 100–108; RESP 18–21; TEMP 97.1–98.4; O2SAT 95–100
[2023-08-19] MEDS: HYDROcodone/ACETAMIN 5-325 MG TAB (NORCO/ VICODIN) PO PRN (01:37)
[2023-08-19] MEDS: THIAMINE HCL 100 MG TABLET PO SCH (09:39)
[2023-08-19] MEDS: NEPHROVITE, (FOLIC ACID/VITAMIN B COMP W-C 1 TAB) PO SCH (09:39)
[2023-08-19] MEDS: METOPROLOL TARTRATE 50 MG TABLET PO SCH ×2 (09:39→20:13)
[2023-08-19] MEDS: LOSARTAN POTASSIUM 50 MG TABLET (COZAAR) PO SCH (09:40)
[2023-08-19] MEDS: CARVEDILOL 6.25 MG TABLET (COREG) PO SCH ×2 (09:41→20:13)
[2023-08-19] MEDS: SPIRONOLACTONE 50 MG TABLET (ALDACTONE) PO SCH (09:41)
[2023-08-19] MEDS: HYDROCHLOROTHIAZIDE 25 MG TABLET (HCTZ) PO SCH (09:42)
[2023-08-19] MEDS: QUEtiapine FUMARATE 100 MG TABLET PO SCH (17:09)
[2023-08-20] MEDS: HYDROcodone/ACETAMIN 5-325 MG TAB (NORCO/ VICODIN) PO PRN (00:37)
[2023-08-20 01:18] VITALS: BP_SYST 125; PULSE 91; RESP 20; TEMP 96.1; O2SAT 97
[2023-08-20 05:37] LABS: BASOPHILS # (AUTO) 0.1 K/uL (0.0-0.2); BASOPHILS % (AUTO) 0.7 % (0.0-2.0); EOSINOPHILS # (AUTO) 0.4 K/uL (0.0-0.4); EOSINOPHILS % (AUTO) 3.3 % (0.0-4.0); HEMATOCRIT 46.5 % (36-54); HEMOGLOBIN 15.1 g/dL (14.0-18.0); LYMPHOCYTES # (AUTO) 2.1 K/uL (1.0-5.5); LYMPHOCYTES % (AUTO) 17.7 % (20.5-51.5); MEAN CORPUSCULAR HEMOGLOBIN 29 pg (27-31); MEAN CORPUSCULAR HGB CONC 33 % (32-36); MEAN CORPUSCULAR VOLUME 90 fL (79.0-98.0); MONOCYTES # (AUTO) 1.9 K/uL (0.0-1.0); MONOCYTES % (AUTO) 16.4 % (1.7-9.3); NEUTROPHILS # (AUTO) 7.2 K/uL (1.8-7.7); NEUTROPHILS % (AUTO) 61.9 % (40.0-70.0); PLATELET COUNT (AUTO) 273 K/uL (130-430); RED BLOOD CELL COUNT(AUTO) 5.18 MIL/uL (4.2-6.2); RED CELL DISTRIBUTION WIDTH 13.9 % (9.0-15.0); WHITE BLOOD COUNT (AUTO) 11.6 K/uL (4.8-10.8)
[2023-08-20 06:03] LABS: ALBUMIN 2.7 g/dL (3.4-4.8); CALCIUM 9.2 mg/dL (8.4-11.0); CREATININE 1.08 mg/dL (0.55-1.30); POTASSIUM 3.4 mmol/L (3.5-5.1); TOTAL BILIRUBIN 0.7 mg/dL (0.0-1.0); TOTAL PROTEIN, SERUM 7.2 g/dL (6.4-8.3)
[2023-08-20] MEDS ORDERED: MINERAL OIL 30 ML UDC PO ONE (09:00)
[2023-08-20] MEDS ORDERED: MILK OF MAGNESIA 30 ML UDC PO PRN (09:00)
[2023-08-20] MEDS: NEPHROVITE, (FOLIC ACID/VITAMIN B COMP W-C 1 TAB) PO SCH (10:19)
[2023-08-20] MEDS: CARVEDILOL 6.25 MG TABLET (COREG) PO SCH ×2 (10:19→21:22)
[2023-08-20] MEDS: LOSARTAN POTASSIUM 50 MG TABLET (COZAAR) PO SCH (10:19)
[2023-08-20] MEDS: SPIRONOLACTONE 50 MG TABLET (ALDACTONE) PO SCH (10:20)
[2023-08-20] MEDS: METOPROLOL TARTRATE 50 MG TABLET PO SCH ×2 (10:20→21:22)
[2023-08-20] MEDS: HYDROCHLOROTHIAZIDE 25 MG TABLET (HCTZ) PO SCH (10:20)
[2023-08-20] MEDS: THIAMINE HCL 100 MG TABLET PO SCH (10:20)
[2023-08-20 11:30] VITALS: BP_SYST 106; PULSE 100; RESP 17; TEMP 98.4; O2SAT 95
[2023-08-20 13:20] VITALS: O2SAT 96
[2023-08-20] MEDS ORDERED: POTASSIUM CHLORIDE 20 MEQ TAB.PRT.SR PO ONE (14:30)
[2023-08-20] MEDS ORDERED: BISACODYL 5 MG TABLET.DR (DULCOLAX) PO ONE (17:00)
[2023-08-20 17:30] VITALS: BP_SYST 121; PULSE 103; RESP 17; TEMP 98.8; O2SAT 95
[2023-08-20] MEDS ORDERED: BISACODYL 5 MG TABLET.DR (DULCOLAX) ONE (18:05)
[2023-08-20 20:00] VITALS: BP_SYST 126; PULSE 102; RESP 18; TEMP 97.1; O2SAT 100
[2023-08-20 21:00] VITALS: O2SAT 95
[2023-08-20] MEDS: MINERAL OIL 30 ML UDC PO SCH ×2 (21:00→21:21)
[2023-08-20] MEDS: QUEtiapine FUMARATE 100 MG TABLET PO SCH (21:21)
[2023-08-21] VITALS: BP_SYST 120; PULSE 94; RESP 18; TEMP 97.5; O2SAT 98
[2023-08-21 06:16] LABS: BASOPHILS # (AUTO) 0.1 K/uL (0.0-0.2); BASOPHILS % (AUTO) 0.5 % (0.0-2.0); EOSINOPHILS # (AUTO) 0.4 K/uL (0.0-0.4); EOSINOPHILS % (AUTO) 3.4 % (0.0-4.0); HEMATOCRIT 46.3 % (36-54); HEMOGLOBIN 14.9 g/dL (14.0-18.0); LYMPHOCYTES # (AUTO) 2.1 K/uL (1.0-5.5); LYMPHOCYTES % (AUTO) 18.7 % (20.5-51.5); MEAN CORPUSCULAR HEMOGLOBIN 29 pg (27-31); MEAN CORPUSCULAR HGB CONC 32 % (32-36); MEAN CORPUSCULAR VOLUME 90 fL (79.0-98.0); MONOCYTES # (AUTO) 2.1 K/uL (0.0-1.0); MONOCYTES % (AUTO) 18.6 % (1.7-9.3); NEUTROPHILS # (AUTO) 6.7 K/uL (1.8-7.7); NEUTROPHILS % (AUTO) 58.8 % (40.0-70.0); PLATELET COUNT (AUTO) 314 K/uL (130-430); RED BLOOD CELL COUNT(AUTO) 5.12 MIL/uL (4.2-6.2); RED CELL DISTRIBUTION WIDTH 13.4 % (9.0-15.0); WHITE BLOOD COUNT (AUTO) 11.4 K/uL (4.8-10.8)
[2023-08-21 06:45] LABS: CALCIUM 9.3 mg/dL (8.4-11.0); CREATININE 1.8 mg/dL (0.55-1.30)
[2023-08-21 08:15] VITALS: BP_SYST 115; PULSE 100; RESP 16; TEMP 99; O2SAT 96
[2023-08-21] MEDS ORDERED: POTASSIUM CHLORIDE 20 MEQ TAB.PRT.SR PO SCH (09:00)
[2023-08-21] MEDS: MINERAL OIL 30 ML UDC PO SCH ×3 (09:44→20:52)
[2023-08-21] MEDS: THIAMINE HCL 100 MG TABLET PO SCH (09:45)
[2023-08-21] MEDS: cloNIDine HCL 0.1 MG TABLET PO PRN (09:45)
[2023-08-21] MEDS: LOSARTAN POTASSIUM 50 MG TABLET (COZAAR) PO SCH (09:46)
[2023-08-21] MEDS: METOPROLOL TARTRATE 50 MG TABLET PO SCH ×2 (09:46→20:47)
[2023-08-21] MEDS: NEPHROVITE, (FOLIC ACID/VITAMIN B COMP W-C 1 TAB) PO SCH (09:46)
[2023-08-21] MEDS: SPIRONOLACTONE 50 MG TABLET (ALDACTONE) PO SCH (09:47)
[2023-08-21] MEDS: HYDROCHLOROTHIAZIDE 25 MG TABLET (HCTZ) PO SCH (09:47)
[2023-08-21 11:28] VITALS: O2SAT 96
[2023-08-21 12:36] VITALS: BP_SYST 125; PULSE 86; RESP 18; TEMP 98.4; O2SAT 97
[2023-08-21] MEDS: NACL 0.9% 1,000 ML IV SCH (19:45)
[2023-08-21 20:00] VITALS: BP_SYST 121; PULSE 86; RESP 20; TEMP 97.6; O2SAT 92
[2023-08-21] MEDS: QUEtiapine FUMARATE 100 MG TABLET PO SCH ×2 (20:47→20:53)
[2023-08-22] VITALS: BP_SYST 115; PULSE 100; RESP 18; TEMP 98.1; O2SAT 100
[2023-08-22 01:32] LABS: BILIRUBIN,URINE NEGATIVE (NEGATIVE); BLOOD, URINE NEGATIVE (NEGATIVE); CLARITY/URINE CLEAR (CLEAR); COLOR,URINE YELLOW (YELLOW); GLUCOSE,URINE NEGATIVE (NEGATIVE); KETONES,URINE NEGATIVE (NEGATIVE); LEUKOCYTE ESTERASE ,URINE NEGATIVE (NEGATIVE); NITRITE, URINE NEGATIVE (NEGATIVE); PH,URINE 6.5 (5.0-8.0); PROTEIN URINE NEGATIVE (NEGATIVE); UROBILINOGEN,URINE 0.2 (0.2-1.0)
[2023-08-22] MEDS: NACL 0.9% 1,000 ML IV SCH (05:24)
[2023-08-22 06:49] LABS: BASOPHILS # (AUTO) 0.1 K/uL (0.0-0.2); BASOPHILS % (AUTO) 0.7 % (0.0-2.0); EOSINOPHILS # (AUTO) 0.5 K/uL (0.0-0.4); EOSINOPHILS % (AUTO) 4.4 % (0.0-4.0); HEMATOCRIT 47.4 % (36-54); HEMOGLOBIN 15.6 g/dL (14.0-18.0); LYMPHOCYTES # (AUTO) 1.9 K/uL (1.0-5.5); LYMPHOCYTES % (AUTO) 17.7 % (20.5-51.5); MEAN CORPUSCULAR HEMOGLOBIN 29 pg (27-31); MEAN CORPUSCULAR HGB CONC 33 % (32-36); MEAN CORPUSCULAR VOLUME 90 fL (79.0-98.0); MONOCYTES # (AUTO) 1.6 K/uL (0.0-1.0); MONOCYTES % (AUTO) 14.9 % (1.7-9.3); NEUTROPHILS # (AUTO) 6.6 K/uL (1.8-7.7); NEUTROPHILS % (AUTO) 62.3 % (40.0-70.0); PLATELET COUNT (AUTO) 352 K/uL (130-430); RED BLOOD CELL COUNT(AUTO) 5.29 MIL/uL (4.2-6.2); RED CELL DISTRIBUTION WIDTH 13.5 % (9.0-15.0); WHITE BLOOD COUNT (AUTO) 10.5 K/uL (4.8-10.8)
[2023-08-22 07:00] VITALS: BP_SYST 147; PULSE 96; RESP 16; TEMP 97.9; O2SAT 95
[2023-08-22 07:14] LABS: ALBUMIN 2.8 g/dL (3.4-4.8); CALCIUM 9.3 mg/dL (8.4-11.0); CREATININE 1.21 mg/dL (0.55-1.30); POTASSIUM 4.7 mmol/L (3.5-5.1); TOTAL BILIRUBIN 0.5 mg/dL (0.0-1.0); TOTAL PROTEIN, SERUM 7.7 g/dL (6.4-8.3)
[2023-08-22 09:00] VITALS: BP_SYST 147; PULSE 96; RESP 16; TEMP 97.9; O2SAT 95
[2023-08-22] MEDS: NEPHROVITE, (FOLIC ACID/VITAMIN B COMP W-C 1 TAB) PO SCH (10:57)
[2023-08-22] MEDS: THIAMINE HCL 100 MG TABLET PO SCH (10:58)
[2023-08-22] MEDS: HYDROCHLOROTHIAZIDE 25 MG TABLET (HCTZ) PO SCH (10:58)
[2023-08-22] MEDS: METOPROLOL TARTRATE 50 MG TABLET PO SCH (10:58)
== END 2023-08-22 14:25 | disposition left against medical advice (07) | DRG 135 ==
LOC: SED 03:24 → STU 10:57 → SMU 08-19 13:46
PROVIDERS: ADMIT Internal Medicine; ATTEND Internal Medicine
DX: S27.322A Contusion of lung, bilateral, initial encounter (principal); E44.1 Mild protein-calorie malnutrition; S22.32XA Fracture of one rib, left side, initial encounter for closed fracture; E87.1 Hypo-osmolality and hyponatremia; E87.6 Hypokalemia; E66.01 Morbid (severe) obesity due to excess calories; F10.10 Alcohol abuse, uncomplicated; I10 Essential (primary) hypertension; K59.00 Constipation, unspecified; Z20.822 Contact with and (suspected) exposure to COVID-19; J45.909 Unspecified asthma, uncomplicated; Y90.9 Presence of alcohol in blood, level not specified; W01.0XXA Fall on same level from slipping, tripping and stumbling without subsequent striking against object, initial encounter; F15.10 Other stimulant abuse, uncomplicated; F41.9 Anxiety disorder, unspecified; Z63.4 Disappearance and death of family member; Z79.1 Long term (current) use of non-steroidal anti-inflammatories (NSAID); Z79.899 Other long term (current) drug therapy; Y93.89 Activity, other specified; Y92.89 Other specified places as the place of occurrence of the external cause; Y99.8 Other external cause status; Z68.35 Body mass index [BMI] 35.0-35.9, adult
CPT/HCPCS: 36415; 70450-TC; 71045; 71250-TC; 71260-TC; 76376; 76770; 80048; 80053; 80061; 80307; 81001; 81003; 82140; 82962; 83735; 83880; 84484; 85025; 85610-TC; 85730-TC; 93005; 93306; 94640; 94760; 96372; 96374; 96375; 97110-GP; 97116-GP; 97530-GP; 99285; G0378; G0482; J2060; J2270; J3411; J3490; Q9967